=== PATIENT | female | born 1940 | race Caucasian/White ===

== ENCOUNTER 2017-12-26 10:09 | Emergency (ER) | payer MEDICARE ==
[2017-12-26] MEDS ORDERED: Sodium Bicarb 50 MEQ/50 ML Abboject 8.4% SYRINGE ONE (11:07)
[2017-12-26] MEDS ORDERED: Lidocaine 1% w/Epinephrine 1:100K 20 ML VIAL ONE (11:07)
[2017-12-26] MEDS ORDERED: Sodium Bicarbonate 2.4 MEQ/5 ML ONE (11:08)
[2017-12-26] MEDS ORDERED: Bacitracin Zinc 1 Packet ONE (11:43)
== END 2017-12-26 11:54 | disposition home or self-care (01) ==
LOC: SCSER 10:09
DX: S01.81XA Laceration without foreign body of other part of head, initial encounter (principal); E78.00 Pure hypercholesterolemia, unspecified; W10.9XXA Fall (on) (from) unspecified stairs and steps, initial encounter
CPT/HCPCS: 12011; J2001

== ENCOUNTER 2021-06-18 13:26 | Outpatient (CLI) | payer MEDICARE | END 2021-06-18 13:27 | disposition home or self-care (01) | LOC: TBSIIMAG 13:26 | PROVIDERS: ATTEND Neurological Surgery | DX: S22.080D Wedge compression fracture of T11-T12 vertebra, subsequent encounter for fracture with routine healing (principal); M47.814 Spondylosis without myelopathy or radiculopathy, thoracic region | CPT/HCPCS: 72070 ==